=== PATIENT | female | born 1990 | race American Indian/Alaskan Native ===

== ENCOUNTER 2018-12-05 09:12 | Day surgery (SDC) | payer MEDICAID ==
[2018-11-14 18:19] VITALS: BMI 45.7
[2018-12-05] MEDS ORDERED: Lactated Ringer's 1,000 ML IV ONE ×2 (09:24→16:43)
--- NOTE | 2018-12-05 11:41 | CP.PCM.PN ---
<Lou Guidry - Last Filed: 12/05/18 11:48> Subjective - Date & Time of Evaluation Date of Evaluation: 12/05/18 Time of Evaluation: 11:39 - Subjective Subjective: 61 yo female with pmhx of seen and evaluated in [facility] for right ankle pain. Patient has asthma. Patient states she sprained her ankle early October and has been in pain ever since. Patient states its very painful and take pain medications prn. Patient admits to being NPO. Denies any recent f/n/v/sob. Pmhx: asthma Allergies: NKFDA Social history: denies smoking cigarettes, occasional alcohol drinker Objective - Vital Signs/Intake and Output Vital Signs (last 24 hours): Temp Pulse Resp BP Pulse Ox 98 F 82 20 122/78 97 12/05/18 09:39 12/05/18 09:39 12/05/18 09:39 12/05/18 09:39 12/05/18 09:39 - Constitutional Appears: Well, Non-toxic - Head Exam Head Exam: ATRAUMATIC - Eye Exam Eye Exam: Normal appearance - ENT Exam ENT Exam: Mucous Membranes Moist - Respiratory Exam Respiratory Exam: NORMAL BREATHING PATTERN - Cardiovascular Exam Cardiovascular Exam: REGULAR RHYTHM, +S1, +S2 - Extremities Exam Additional comments: Vascular: Pedal pulses palpable, protective sensation intact, no erythema or edema noted derm: no open lesions, no clinical signs of infection ortho: pain with palpation of the lateral ankle joint and end ROM of the ankle joint - Neurological Exam Neurological Exam: Alert, Oriented x3 Assessment and Plan - Assessment and Plan (Free Text) Assessment: 61 yo female seen and evaluated in [facility] for right ankle arthroscopy with repair of medial and lateral collateral ligaments Plan: Pt was seen and examined in [facility] Pt NPO status was confirmed All pre-op testing and clearance in chart Pt has exhausted all conservative treatment at this time and is opting for surgical intervention Pt was explained procedure and post-operative course All pt's questions were answered to satisfaction No guarantees were made Pt understands all risks, benefits and complications of procedure Pt will follow-up with Dr. Padilla within 1 week of surgery <Demetrius Padilla - Last Filed: 12/07/18 21:37> Objective - Vital Signs/Intake and Output Vital Signs (last 24 hours): Temp Pulse Resp BP Pulse Ox 97.6 F 72 18 122/78 97 12/05/18 19:25 12/05/18 19:25 12/05/18 19:25 12/05/18 19:25 12/05/18 19:25
--- NOTE | 2018-12-05 11:42 | CP.SDSHP ---
Same Day Surgery H & P - History Proposed Procedure: Right ankle arthroscopy with extensive debridement, repair medial/lateral collateral ligament Pre-Op Diagnosis: Right ankle synovitis with lateral collateral ligament tear - Allergies Allergies: Allergies No Known Allergies Allergy (Verified 11/14/18 18:20) - Physical Exam Vital Signs: Vital Signs 12/05/18 09:39 Temperature 98 F Pulse Rate 82 Respiratory 20 Rate Blood Pressure 122/78 O2 Sat by Pulse 97 Oximetry Neuro: WNL Heart: WNL - Date & Time Date: 12/05/18 Time: 11:48 Short Stay Discharge - Short Stay Discharge Admitting Diagnosis/Reason for Visit: S93.491D/ M25.571/M25.371/ Disposition: HOME/ ROUTINE Additional Instructions (Diet, Activity): Progress Note/Discharge Note with Instructions: - Patient evaluated bedside in recovery s/p right ankle arthroscopy with lateral ankle stabilzation - After surgical procedure patient in NAD - (+) Void, (+) Appetite - Capillary refill time <3s and NVS intact. - Patient denies complaints at this time. - Post operative instructions and plan of care explained to patient at length. - Patient. acknowledges verbal understanding. - Patient stable for DC per podiatric surgery Progress Note/Discharge Note with Instructions: - Patient evaluated bedside in recovery s/p right ankle arthroscopic debridement with repair of lateral collateral ligaments - After surgical procedure patient in NAD - (+) Void, (+) Appetite - Capillary refill time <3s and NVS intact. - Patient denies complaints at this time. - Post operative instructions and plan of care explained to patient at length. - Patient. acknowledges verbal understanding. - Patient stable for DC per podiatric surgery
[2018-12-05] MEDS ORDERED: Bupivacaine 0.25% Inj(30mL) IJ ONE (11:53)
[2018-12-05] MEDS ORDERED: Lidocaine 1% Inj (20ml) IJ ONE (11:53)
[2018-12-05] MEDS ORDERED: Sodium Chloride 0.9% 1,000 ML IV SCH (12:00)
[2018-12-05] MEDS ORDERED: ceFAZolin 1 GM in Sodium Chloride 0.9% 100 ML IVPB ONE (12:56)
[2018-12-05] MEDS ORDERED: Propofol 10 mg/ml Inj (20 ML) ONE ×2 (13:11→13:40)
[2018-12-05] MEDS ORDERED: Lidocaine 4% (Laryng-O-Jet) Kit MM ONE (13:12)
[2018-12-05] MEDS ORDERED: Midazolam 2 MG/2 ML VIAL ONE (13:12)
[2018-12-05] MEDS ORDERED: ePHEDrine 50 mg/ml Inj ONE (13:12)
[2018-12-05] MEDS ORDERED: Succinylcholine Chloride 20 mg/ml Syr (5 ml) IV ONE (13:12)
[2018-12-05] MEDS ORDERED: Bupivacaine HCl 0.5% PF (30 ml) Inj ONE ×2 (13:23→15:40)
[2018-12-05] MEDS ORDERED: EPINEPHrine 1:1000 Nasal Sol(30mL) ONE (13:23)
[2018-12-05] MEDS ORDERED: Succinylcholine 200 mg/10 ml Inj IV ONE (13:43)
[2018-12-05] MEDS ORDERED: Dexamethasone 4 mg/1 ml ONE (14:08)
[2018-12-05] MEDS ORDERED: Ropivacaine 0.5% 30ML IV ONE (15:14)
--- NOTE | 2018-12-05 15:41 | PCM.SURG1 ---
Surgeon's Initial Post Op Note - Surgeon's Notes Surgeon: Dr Demetrius Padilla Manager Mba: Adi Corona, PGY3 Krysta Stanley MS4 Type of Anesthesia: General LMA, Local Anesthesia Administered By: Dr Tran Pre-Operative Diagnosis: right ankle synotivitis and right ankle lateral collateral ligament tear Operative Findings: see dictation. materials: arthrex internal brace, 4-0 2-0 vicryl, 4-0 prolene. injectibles: 10 cc of 1% lidocaine plain Post-Operative Diagnosis: same Operation Performed: right ankle arthroscopic debridement and right ankle repair of collateral ligaments (modified brostrom) Specimen/Specimens Removed: none Estimated Blood Loss: EBL {In ML}: 3 Blood Products Given: N/A Drains Used: No Drains Post-Op Condition: Good Date of Surgery/Procedure: 12/05/18 Time of Surgery/Procedure: 15:41
[2018-12-05] MEDS ORDERED: Oxycodone/Acetaminophen 5/325 mg Tab PO PRN ×2 (15:45)
[2018-12-05] MEDS ORDERED: HYDROmorphone 0.5 mg/0.5 ml ISec ONE (16:49)
--- NOTE | 2018-12-05 16:50 | PCM.ANESB2 ---
Popliteal Nerve Block - Popliteal Nerve Block Date of Procedure: 12/05/18 Anesthesiologist: Andres Munoz Pre-Procedure Diagnosis: right ankle scope Post-Procedure Diagnosis: same Procedure Performed: Popliteal Nerve Block Right - Procedure Popliteal Nerve Block: This procedure was explained to the patient that it is for post-operative pain management. Consent was obtained after a thorough discussion with the patient regarding the benefits and possible complications of local anesthetic block of the sciatic nerve at the popliteal level. The patient was brought to the operating room and standard monitors are applied. Time-out was held with the circulating nurse to confirm the correct surgery and the appropriate block. After applying oxygen by nasal cannula and administering IV Sedation, patient's operative leg was gently raised and supported and the groove in between the biceps femoris and vastus lateralis muscles was carefully palpated. The skin approximately 8cm above the popliteal crease was then marked. The ultrasound transducer was then applied to the posterior thigh approximately 8cm above the popliteal crease in the transverse plane and the sciatic nerve before its division was visualized lateral to the popliteal artery and in between the bicep femoris and semimembranosus/semitendinosus muscles. After identification, the lateral portion of the thigh was prepped with Betadine solution three times and Lidocaine 1% was injected subcutaneously for topical anesthesia. At this point, a # 21 gauge Stimuplex insulated 4 inch needle was inserted into pre-marked area and advanced in a perpendicular direction. The needle was inserted above the ultrasound transducer in-plane towards the sciatic nerve in a [id number] direction. Needle advancement was performed carefully under direct ultrasound visualization. Nerve stimulator was used and dorsiflexion of the _right____ foot was elicited at a current of _0.3____ MA. After repeated negative aspiration, 20___cc of 0.5 % _ropiv was injected and this was flowed with _10 cc of _0.5 % ___bupiv . Under ultrasound guidance the local anesthetics were observed surrounding sciatic nerve . The needle was removed intact and sterile dressing was applied. The patient tolerated the popliteal nerve block well with stable vital signs and was subsequently prepared for the surgery.
[2018-12-05] MEDS: HYDROmorphone 0.5 mg/0.5 ml ISec IVP PRN ×3 (16:55→17:25)
[2018-12-05] MEDS ORDERED: Lactated Ringer's 1,000 ML IV SCH (17:00)
--- NOTE | 2018-12-05 17:26 | RAD ---
Date of service: 12/05/2018 PROCEDURE: Fluoroscopic assistance in excess of 1 hour. HISTORY: RIGHT ANKLE COMPARISON: None TECHNIQUE: Standard protocol for this study/examination. FINDINGS: Total fluoroscopic time (continuous mode) utilized during the procedure 7.8 seconds. IMPRESSION: Submitted images from the current procedure: 1.0
[2018-12-05 18:36] VITALS: RESP 18
[2018-12-05 19:30] VITALS: BP 122/78; PULSE 72; TEMP 97.6; O2SAT 97
--- NOTE | 2018-12-09 16:08 | PCM.OP ---
Operative Report - Operative Report Date of Surgery/Procedure: 12/05/18 Time of Surgery/Procedure: 13:00 Surgeon: Dr. Padilla Welder Gun: Dr. Andre Corona PGY-3 Anesthesia/Sedation: IV sedation, Regional Popliteal and Saphenous block Pre-Operative Diagnosis: Pre-Operative Diagnoses: 1) Right ankle painful joint synovitis 2) Right ankle lateral instability with rupture of anterior talofibular ligament Post-Operative Diagnosis: same Indication for Surgery: Indications: The patient is a 28 year-old female with the above diagnoses. The patient presents with painful Right ankle with history of chronic ankle sprain and lateral ankle instability. The patient have exhausted conservative treatment at this point and now requests surgical intervention for Right ankle. The patient signed the consent after careful explanation of risks, benefits, complication and alternatives for surgical procedure. No guarantees were given nor implied. 1 gram of Ancef IV was given to the pt hour prior to the procedure. NPO status was confirmed prior to taking pt to the OR. Operative Findings: Indications: The patient is a 28 year-old female with the above diagnoses. The patient presents with painful Right ankle with history of chronic ankle sprain and lateral ankle instability.The patient have exhausted conservative treatment at this point and now requests surgical intervention for Right ankle. The patient signed the consent after careful explanation of risks, benefits, complication and alternatives for surgical procedure. No guarantees were given nor implied. 1 gram of Ancef IV was given to the pt hour prior to the procedure. NPO status was confirmed prior to taking pt to the OR. Procedure/Operation Description: Name of Procedure: 1) Right ankle arthroscopic debridement of painful joint synovitis 2) Right ankle lateral stabilization using Arthrex Internal Brace and Fibertak PROCEDURE #1: Right ankle Arthroscopic debridement of joint synovitis Attention was then directed to the anterior aspect of the patients Right ankle. Utilizing a sterile surgical marking pen, anatomical landmarks were marked such as the tibialis anterior tendon, peroneus tertius and the medial and lateral gutters of the ankle joint. Next, the ankle joint was infiltrated with 15 ml of sterile saline without epinephrine. Next, utilizing a #11 blade, a small stab incision was created as a medial portal, medial to the tibialis anterior tendon. A small hemostat was utilized to bluntly dissect down to the level of the ankle joint. With the foot in dorsiflexed position to protect the articular surface of talus, the ankle joint was entered through the medial portal with a probe. Next, a 2.7 scope was entered into the medial portal. There was an abundance of hypertrophic synovium as well as fibrous bands within the ankle joint. A lateral portal was then created utilizing a #11 blade and a hemostat down to the level of the ankle joint. A trocar was placed into the lateral portal and triangulated along with the 2.7mm scope. At this time, a 3.5mm aggressive shaver was inserted into the lateral portal and debridement of the hypertrophic synovium and fibrous bands began. The ankle joint was inspected for any osteochondral defects and loose bodies, however none were found. Next, the scope and the shaver were removed from the patients right ankle joint. The skin was re-approximated and coapted with #4-0 Prolene. PROCEDURE #2: Right ankle lateral stabilization using Arthrex Internal Brace and Fibertak Attention was then directed to the lateral aspect of the Right ankle joint overlying the anterior aspect of the distal fibula. An approximately 4cm curvilinear incision was created overlying the ATFL at the level of the anterior lateral gutter. The incision was carried down through subcutaneous tissues with care being taken to identify all vital neurovascular structures; all bleeders were cauterized and ligated as necessary. Attention was then directed to the lateral aspect of the right distal fibula through the incision. Utilizing a #15 blade, an approximately 3cm linear periosteal incision was made to the distal-anterior aspect of the fibula. Utilizing a freer and a mcgraw elevator, periosteal and capsular structures were reflected off of the bone laterally and medially, revealing cortical surface of the distal fibula for placement of anchors in the later step of this procedure. Attention was then directed to the lateral aspect of the Right ankle joint at the level of the anterior lateral gutter. Utilizing a #15 blade, the capsular structures were incised in a vertical fashion overlying the roof of the sinus tarsi. Once the capsular structures were incised, unhealthy portion of the ATFL was visualized. Next, the ankle joint was inverted and the articular cartilage and lateral gutter were inspected for any osteochondral lesions and none were noted. Next, under folouroscopic guidance, a 3.4mm drill hole was created on the non-articulating surface of the talar body directed approximately 45 degrees to prevent violating the articular cartilage of ankle joint. Then a 4.75mm Swivelock tap was utilized to prepare for Internal brace. Then a 4.75mm Swivelock anchor was inserted into the pre-tabbed hole in talus with a mallet to assist with proper placement. Firm placement of the anchor was noted. The fiber tapes from the anchor was fed through a free needle and was passed through a portion of ATFL and the capsule of ankle joint from deep to superficial. These fiber tapes were set aside for later step. The surgical site was irrigated with copious amount of normal sterile saline. Next, the 2.7mm drill bit from the Internal Brace kit was utilized to create a hole for Swivelock anchor 2.5 cm proximal from the distal tip of the fibula. The drill hole was then tapped with a 3.5mm tap for at least two turns to securely fit into the fibula. This hole was marked by placing a short K-wire with bent tip into the hole. Next, a 2.4 mm drill bit for LUVHAN SutureTak was utilized to create another drill hole in the non-articulating surface of fibula, at least 1cm distal to the initial Swivelock anchor hole. Next, one Arthrex Fiber francis was placed in the hole. The sutures were then fed through the ATFL and Capsular tissues in an over and over suture fashion. While performing this, the foot was placed in everted and slightly dorsiflexion position. Next, the 3.5mm Swivelock anchor from Internal Brace kit which was loaded with the fibertapes that were set aside initially. The short K-wire from fibula was removed and passed from the operative field. The Swivelock anchor with fiber tapes stemming from talus was then placed into the drill hole in fibula in place of the short K-wire that was just removed. To avoid over-tensioning, the hemostat was placed in underneath the fiber tape while inserting the Swivelock. Firm placement of the Internal Brace Swivelock anchor into the fibular was confirmed with passive range of motion at the ankle joint. Excessive fibertape was cut and removed from the operative field. The ankle was stressed in eversion and inversion with excellent stability noted. The surgical site was irrigated w ith copious amount of normal sterile saline. Deep tissues were reapproximated and coapted with #2-0 vicryl. All periosteal and capsular structures were reapproximated with #2-0 and #3-0 Vicryl suture, subcutaneous tissues were reapproximated utilizing # 3-0 and #4-0 Vicryl sutures. The subcuticular tissues were reapproximated with #4-0 Monocryl. Steristrips were applied to all surgical incision sites. Medial aspect of the right ankle was infiltrated with 10ml of 0.5% Marcaine plain for Saphenous block. Regional popliteal block was performed to right lower extremity by the anesthesiologist after the case was performed. Right lower extremity was dressed with adaptic, 4x4, Kerlix and posterior splint. The attending was present during the entire case. Estimated Blood Loss: Less than 5 mL Blood Replaced: None Drains: None Complications: None Discharge & Condition: Postoperative Condition: The patient tolerated the anesthesia and procedure well and was escorted to the recovery room with vital signs stable and neurovascular status intact to the Right lower extremity. This patient will follow up with Dr. Padilla as an outpatient.
== END 2018-12-05 19:30 | disposition home or self-care (01) ==
LOC: H.OPSURG 09:12
PROVIDERS: ATTEND Podiatrist Foot & Ankle Surgery
DX: M25.571 Pain in right ankle and joints of right foot (principal); J45.909 Unspecified asthma, uncomplicated; M25.371 Other instability, right ankle; E11.9 Type 2 diabetes mellitus without complications; E66.01 Morbid (severe) obesity due to excess calories; D64.9 Anemia, unspecified; M65.871 Other synovitis and tenosynovitis, right ankle and foot; S83.429A Sprain of lateral collateral ligament of unspecified knee, initial encounter
CPT/HCPCS: 27695; 29897; C1713; J0330; J0690; J1100; J1170; J2001; J2250; J2405; J2704; J2765; J3010; J7030; J7120